=== PATIENT | female | born 1950 | race Two or more races ===

== ENCOUNTER 2019-05-02 15:43 | Emergency (ER) | payer MEDICARE, OTHER ==
[2019-05-02] MEDS ORDERED: Alum Hydrox/Mag Hydrox/Simeth 30 ML, Lidocaine 2% 15 ML PO ONE ×2 (17:09)
--- NOTE | 2019-05-02 17:17 | EDM.PDOC ---
ED HPI GENERAL MEDICAL PROBLEM - General Chief Complaint: Chest Pain Stated Complaint: CHEST PAIN, SOB Time Seen by Provider: 05/02/19 16:42 Source of Information: Reports: Patient History Limitations: Reports: No Limitations - History of Present Illness INITIAL COMMENTS - FREE TEXT/NARRATIVE: This lady comes in for chest pain. This is been going on for several weeks. She takes Aleve twice daily for this pain. It is lower substernal and radiates around to her back. She's had reflux before but this is different from reflux. Nothing seems to make it worse. Activity does not make it worse there are no foods that make it worse. Occasionally she has some nausea but no vomiting. When she has the pain she gets anxious and maybe that causes a little bit of shortness of breath. She does not smoke. She denies any history of heart trouble. She takes the proton pump inhibitor Zegred which is omeprazole 20 mg with sodium bicarbonate. She takes this once daily. It isn't clear if she uses antacids are not. She denies any kind of abdominal pain. She denies any heart or lung disease. 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: Musculoskeletal History: Reports: Osteoarthritis - Infectious Disease History Infectious Disease History: Reports: Chicken Pox, Measles - Past Surgical History Musculoskeletal Surgical History: Reports: Arthroscopic Knee, Shoulder Surgery Social & Family History - Tobacco Use Smoking Status *Q: Never Smoker - Caffeine Use Caffeine Use: Reports: Coffee - Recreational Drug Use Recreational Drug Use: No ED ROS GENERAL - Review of Systems Review Of Systems: See Below Constitutional: Reports: No Symptoms HEENT: Reports: No Symptoms Respiratory: Reports: Shortness of Breath (See history of present illness). Denies: Cough Cardiovascular: Reports: Chest Pain. Denies: Dyspnea on Exertion, Edema, Lightheadedness, Palpitations Endocrine: Reports: No Symptoms GI/Abdominal: Reports: Nausea : Reports: No Symptoms Musculoskeletal: Reports: No Symptoms Skin: Reports: No Symptoms Neurological: Reports: No Symptoms ED EXAM, GENERAL - Physical Exam Exam: See Below Exam Limited By: No Limitations General Appearance: Alert, WD/WN, No Apparent Distress (Generally very healthy- appearing) Eye Exam: Bilateral Eye: Normal Inspection Throat/Mouth: Normal Inspection Neck: Normal Inspection Respiratory/Chest: Lungs Clear, Normal Breath Sounds, Chest Non-Tender Cardiovascular: Regular Rate, Rhythm, No Murmur Peripheral Pulses: 2+: Radial (L), Radial (R) GI/Abdominal: Normal Bowel Sounds, Soft, Non-Tender Back Exam: Normal Inspection Extremities: No Pedal Edema Neurological: Alert, Normal Cognition Psychiatric: Normal Affect Skin Exam: Warm, Dry Course - Vital Signs Last Recorded V/S: Last Vital Signs Temp 36.3 C 05/02/19 16:51 Pulse 68 05/02/19 16:51 Resp 16 05/02/19 16:51 BP 183/79 H 05/02/19 16:51 Pulse Ox 98 05/02/19 16:51 - Orders/Labs/Meds Orders: Active Orders 24 hr Category Date Time Status EKG Documentation Completion [RC] ASDIRECTED Care 05/02/19 17:08 Active Chest 2V [CR] Urgent Exams 05/02/19 17:08 Taken EKG 12 Lead [EK] Urgent Ther 05/02/19 17:08 Ordered Labs: Laboratory Tests 05/02/19 05/02/19 05/02/19 Range/Units 17:08 17:08 17:08 WBC 5.8 (4.5-11.0) K/uL RBC 4.00 (3.30-5.50) M/uL Hgb 12.2 (12.0-15.0) g/dL Hct 38.6 (36.0-48.0) % MCV 97 (80-98) fL MCH 31 (27-31) pg MCHC 32 (32-36) % Plt Count 254 (150-400) K/uL Neut % (Auto) 64 (36-66) % Lymph % (Auto) 23 L (24-44) % Prentiss % (Auto) 10 H (2-6) % Eos % (Auto) 1 L (2-4) % Baso % (Auto) 1 (0-1) % D-Dimer, Quantitative 456 H (0.0-400.0) ng/mL Sodium 141 (140-148) mmol/L Potassium 4.1 (3.6-5.2) mmol/L Chloride 105 (100-108) mmol/L Carbon Dioxide 26 (21-32) mmol/L Anion Gap 9.6 (5.0-14.0) mmol/L BUN 19 H (7-18) mg/dL Creatinine 0.6 (0.6-1.0) mg/dL Est Cr Clr Drug Dosing 63.56 mL/min Estimated GFR (MDRD) > 60 (>60) Glucose 106 (74-106) mg/dL Calcium 8.9 (8.5-10.1) mg/dL Total Bilirubin 0.3 (0.2-1.0) mg/dL AST 13 L (15-37) U/L ALT 16 (12-78) U/L Alkaline Phosphatase 90 (46-116) U/L Troponin I < 0.017 (0.000-0.056) ng/mL Total Protein 7.0 (6.4-8.2) g/dL Albumin 3.8 (3.4-5.0) g/dL Globulin 3.2 (2.3-3.5) g/dL Albumin/Globulin Ratio 1.2 (1.2-2.2) Meds: Medications Discontinued Medications Generic Name Dose Route Start Last Admin Trade Name Freq PRN Reason Stop Dose Admin Al Hydroxide/Mg Hydroxide 30 0 ml 05/02/19 17:09 05/02/19 17:33 ml/ Lidocaine HCl 15 ml PO 05/02/19 17:10 45 ml ONETIME ONE Administration - Radiology Interpretation Free Text/Narrative:: Chest x-ray shows normal heart size normal lung markings. Official radiology report is pending - Re-Assessments/Exams Free Text/Narrative Re-Assessment/Exam: 05/02/19 18:20 EKG shows normal sinus rhythm at 65 bpm normal QRS normal ST and T waves. Patient received a GI cocktail and gave complete total relief within 30 seconds. Her d-dimer test is slightly elevated however this is a very athletic very active woman she doesn't have any kind of leg swelling or pain and it is extremely unlikely that this lady has a pulmonary embolus and I believe that is a false positive test and I have explained that to her. Her immediate relief with the GI cocktail reinforces this. Departure - Departure Time of Disposition: 18:21 Disposition: Home, Self-Care 01 Condition: Fair Clinical Impression: Reflux esophagitis Referrals: PCP,None [Primary Care Provider] - Forms: ED Department Discharge Additional Instructions: You are probably having reflux of acid up into your esophagus which causes the chest pain. This is very common. Stop taking the Zegred. It is nothing but omeprazole with some baking soda thrown in. Instead try taking Equate omeprazole magnesium capsules (not the tablets) 20 mg twice daily. This is a standard treatment for gastroesophageal reflux. If needed you can also use an antacid such as Maalox or Mylanta or even Tums. If you use Tums tablets then you need to chew up 3 or 4 at a time. We'll give you a handout telling is some things that you can do to help reduce reflux. Plan to see your doctor within the next week or 2. People who have chronic reflux for a number of years can be at increased risk of esophageal cancer and your Dr. can decide whether or not you need to be scoped. I would advise against having any kind of surgery for reflux. - My Orders Last 24 Hours: My Active Orders 05/02/19 17:08 EKG Documentation Completion [RC] ASDIRECTED Chest 2V [CR] Urgent EKG 12 Lead [EK] Urgent - Assessment/Plan Last 24 Hours: My Active Orders 05/02/19 17:08 EKG Documentation Completion [RC] ASDIRECTED Chest 2V [CR] Urgent EKG 12 Lead [EK] Urgent
--- NOTE | 2019-05-02 18:33 | CRLCR ---
Indication: Pain. Technique: PA and lateral views the chest were obtained. Comparison: None Findings: The lungs are clear. The heart is normal in size. No infiltrate, pleural effusion, or pneumothorax is identified. Impression: No acute cardiopulmonary process. Dictated by Valentina Morse MD @ May 02 2019 6:31PM Signed by Dr. Valentina Morse @ May 02 2019 6:33PM
== END 2019-05-02 18:55 | disposition home or self-care (01) ==
LOC: JP.ED 15:43
DX: K21.0 Gastro-esophageal reflux disease with esophagitis (principal); Z88.5 Allergy status to narcotic agent; Z79.899 Other long term (current) drug therapy
CPT/HCPCS: 36415; 71046; 80053; 84484; 85025; 85379; 93005; 99285; A9270; 99284